=== PATIENT | female | born 1945 | race Caucasian/White ===

== ENCOUNTER 2016-08-20 22:22 | Inpatient (IN) | payer MEDICARE ==
[~2016-08-20] VITALS: Ht 165.1 cm; Wt 63.2 kg
[~2016-08-20 22:22] MED LIST: ANAS1TAB7 PO; CALC-235 PO; CHOL200047 PO; LEVE500T3 PO; ZOLP5TAB6 PO
[2016-08-20 22:25] VITALS: BP 128/63; PULSE 50; O2SAT 100
[2016-08-20 22:55] LABS: BASOPHILS % (AUTO) 0.4 % (0-3); EOSINOPHILS % (AUTO) 1.9 % (0-5); MONOCYTES % (AUTO) 8.1 % (4-12); Mean Corpuscular Hemoglobin 31.5 pg (27.0-35.0); Mean Corpuscular Volume 93.2 fL (81-100); NEUTROPHILS % (AUTO) 69.3 % (40-74); Platelet Count 293 bil/L (150-400)
[2016-08-20 23:27] LABS: APPEARANCE,URINE HAZY (CLEAR,HAZY); COLOR,URINE STRAW (YELLOW); OCCULT BLOOD,URINE NEGATIVE (NEGATIVE); UROBILINOGEN,URINE NORMAL (NORMAL)
[2016-08-21] VITALS (10 sets, daily range): BP systolic 105–133; BP diastolic 55–79; PULSE 65–86; RESP 16–20; O2SAT 95–100
[2016-08-21] MEDS ORDERED: HYDROmorphone 0.5 mg/0.5 mL iSecure Syringe IVPUSH PRN (00:55)
[2016-08-21] MEDS ORDERED: Ondansetron 2 mg/mL 2 mL Inj IVPUSH PRN ×2 (00:55→01:05)
--- NOTE | 2016-08-21 00:59 | ED.REPORT ---
HPI-Abd Pain F 40 and Over Date of Service Aug 21, 2016 ED Provider: Dane Magaña DO Nursing Notes Stated Complaint: ABDOMINAL PAIN, POSSIBLE PANCREATITIS Chief Complaint: Female Abdominal Pain Allergies: Coded Allergies: TAPE (Verified Allergy, Unknown, 04/22/16) Scheduled Anastrozole (Anastrozole) 1 Mg Tablet 1 MG PO DAILY Calcium Carbonate/Vitamin D3 (Calcium 250+D Tablet) 1 Each Tablet 1 EACH PO DAILY Cholecalciferol (Vitamin D3) (Vitamin D3) 2,000 Unit Capsule 2,000 UNIT PO BID Levetiracetam (Levetiracetam) 500 Mg Tablet 500 MG PO BID Scheduled PRN Zolpidem (Zolpidem) 5 Mg Tablet 2.5 MG PO HS PRN PRN For Insomnia General Time Seen by MD: 00:54 Chief Complaint Abdominal pain Midline epigastric pain radiating to her back. Hx Obtained From: Patient Sudden in Onset?: No Onset Occurred: 5 - 8 hours ago Context of Onset: Other (prior history of pancreatitis) Symptom Duration: Since onset Progression since Onset: Gradually worsening Location: : Epigastric Quality: Burning Radiation: : Back Severity: Current: Moderate Severity: Maximum: Moderate Associated with: Reports: Nausea Pertinent Negative: Pt denies other symptoms Recent Healthcare: Recent hospitalization Similar Sx Previous: Yes Risk Factors )( AAA Risk Stratification No 1st degree relative, No Carmelo-Danlos syndrome, No Hypertension, No Marfan's syndrome, No Prior AAA, No Smoking Risk factors reviewed Ectopic Risk Stratification Risk factors reviewed CAD Risk Stratification Risk factors reviewed TAD Risk Stratification Risk factors reviewed Past Medical History Past Medical History left-sided breast cancer Past Surgical History left mastectomy hip replacement Family History Noncontributory Smoking History Never Smoker Social History Alcohol Use: Denies alcohol use Drug Use: Denies drug use Other Social History: Good social support, , Local resident Ambulatory Status Independent Review of Systems Basic Review of Systems Eyes: Vision NL, No discharge ENT: Hearing NL, No nasal congestion, No pharyngeal pain Hematologic: No bleeding, No bruising Endocrine: No cold intolerance, No heat intolerance, No weight gain, No weight loss Skin: No bruising, No rash, No itch Allergy / Immune: No allergy Neurologic: NL mental status, No weakness, No numbness Psychiatric: Normal thought content Physical Exam Vital Signs Vital Signs (First) Date Time Temp Pulse Resp B/P Pulse Ox O2 Delivery O2 Flow Rate FiO2 08/20/16 22:25 36 50 128/63 100 Room Air Head / Eyes: Atraumatic, Normocephalic, PERRL ENT: Mucous membranes moist, Conjunctiva normal Neck: Supple, Non-tender, Full range of motion Lymphatic: No lymphadenopathy Extremities: Vascular intact, Neuro intact, No swelling, No tenderness Skin: Warm, Dry, No cyanosis Neurologic: Alert, Oriented, Nonfocal Psychiatric: Mood/affect normal, Behavior normal Tenderness/Guarding/Rebound: Positive: Tender diffuse Organomegaly / Mass / Hernia: Negative: Mass present Bowel Sounds / Distention: Positive: Bowel sounds hyperactive Interpretation & Diagnostics Lab Results Interpretation Result Diagram: 08/20/168 08/20/16 2248 Test 08/20/16 22:48 08/20/16 23:04 White Blood Count 12.2th/mm3 (3.8-10.1) Red Blood Count 4.13mil/mm3 (3.90-5.20) Hemoglobin 13.0g/dL (12.0-15.6) Hematocrit 38.5% (35.0-46.0) Mean Corpuscular Volume 93.2fL (81-100) Mean Corpuscular Hemoglobin 31.5pg (27.0-35.0) Mean Corpuscular Hemoglobin Concent 33.8% (32.0-37.0) Red Cell Distribution Width 13.1% (12.3-15.4) Platelet Count 293bil/L (150-400) Neutrophils (%) (Auto) 69.3% (40-74) Lymphocytes (%) (Auto) 20.1% (14-46) Monocytes (%) (Auto) 8.1% (4-12) Eosinophils (%) (Auto) 1.9% (0-5) Basophils (%) (Auto) 0.4% (0-3) Sodium Level 141mEq/L (134-144) Potassium Level 3.8mEq/L (3.5-5.2) Chloride Level 102mEq/L (97-108) Carbon Dioxide Level 29mmol/L (18-29) Blood Urea Nitrogen 19mg/dL (8-27) Creatinine 0.79mg/dL (0.57-1.00) Estimat Glomerular Filtration Rate 103mL/min (>59) Glucose Level 153mg/dL (60-99) Lactic Acid Level 1.0mmol/L (0.4-2.0) Calcium Level 9.3mg/dL (8.5-10.1) Magnesium Level 2.0mg/dL (1.6-2.6) Total Bilirubin 0.2mg/dL (0.0-1.2) Aspartate Amino Transf (AST/SGOT) 23U/L (0-50) Alanine Aminotransferase (ALT/SGPT) 17U/L (0-32) Alkaline Phosphatase 46U/L (25-165) Total Protein 6.6g/dL (6.4-8.4) Albumin 4.1g/dL (3.4-5.0) Triglycerides Level 81mg/dL (0-149) Cholesterol Level 181mg/dL (100-199) LDL Cholesterol, Calculated 107.800mg/dL (0-99) VLDL Cholesterol 16.200mg/dL HDL Cholesterol 57mg/dL (>39) Cholesterol/HDL Ratio 3.18 (0.0-4.4) Lipase 6950U/L (13-60) Urine Color Straw (YELLOW) Urine Appearance Hazy (CLEAR,HAZY) Urine pH 7.0 (5.0-8.0) Urine Specific [place] 1.020 (1.003-1.035) Urine Protein Negativemg/dL (NEG,TRACE) Urine Glucose (UA) Negativemg/dL (NEGATIVE) Urine Ketones Negativemg/dL (NEGATIVE) Urine Occult Blood Negative (NEGATIVE) Urine Nitrite Negative (NEGATIVE) Urine Bilirubin Negative (NEGATIVE) Urine Urobilinogen Normalmg/dL (NORMAL) Urine Leukocyte Esterase Trace (NEGATIVE) Urine RBC 0-2/hpf (0-2) Urine WBC 0-5/hpf (0-5) Urine Epithelial Cells Occasional/hpf (NONE-MOD) Urine Crystals Amorphous phosphates Urine Bacteria None/hpf (NONE-FEW) Urine Hyaline Casts None/lpf (NONE) Urine Granular Casts None seen (NONE SEEN) Urine Waxy Casts None seen (NONE SEEN) Urine Red Blood Cell Casts None seen (NONE SEEN) Urine White Blood Cell Casts None seen (NONE SEEN) Urine Mucus None seen (None Seen) Urine Trichomonas None seen (NONE SEEN) Urine Yeast None (NONE SEEN) Urine Culture Reflexed Indicated Re-Eval/Medical Decision Med Decision/Clinical Course 70-year-old female history of pancreatitis presents with similar symptoms to her prior bout. She has right historian right exam for pancreatitis. She has biochemical evidence and CT evidence of pancreatitis. She has been treated with IV fluids and she will be admitted to the hospital for further care and disposition. Discharge & Departure Shift Change Sign-Out Response to Therapy: Improved Primary Impression: Acute pancreatitis Pancreatitis type: unspecified pancreatitis type Qualified Code: K85.9 - Acute pancreatitis, unspecified Referrals: Pérez Avelar MD (PCP) Dane Magaña DO Aug 21, 2016 00:59
[2016-08-21] MEDS ORDERED: 0.9% Sodium Chloride 1,000 ML IV ONE (01:05)
[2016-08-21] MEDS ORDERED: Polyethylene Glycol (PEG) 17 Gm Powder PO PRN (01:05)
[2016-08-21] MEDS ORDERED: Alum-Mag Hydrox-Simeth 30 mL Suspension PO PRN (01:05)
[2016-08-21] MEDS: HYDROmorphone 1 mg/mL Inj IVPUSH PRN ×3 (01:41→18:00)
[2016-08-21] MEDS: Lactated Ringer's 1,000 ML IV SCH ×3 (03:24→19:43)
--- NOTE | 2016-08-21 04:09 | PCM.HPMED ---
Subjective Date of Service Aug 21, 2016 Primary Provider: Admitting Physician: Primary Care Physician: Pérez Avelar MD Attending Physician: Admit Status: From the Emergency Department, Full Admit, Remote Telemetry Chief Complaint: Acute abdominal pain History of Present Illness: Yue Crowe is a 70 wo woman with Breast Cancer, Melanoma and Epilepsy disorder who presents to [facility] Emergency department with complaints of abdominal pain Patient reported the pain started around 8:30 PM after eating dinner. Pain located in the lower mid abdomen, crampy, 8/10 intensity with no radiation to her back. Associated symptoms includes nausea and vomiting, chills and feeling sweaty. Patient reported similar to her episode of pancreatitis last March. Etiology of her pancreatitis was never determined. This will be her third episode of pancreatitis. Patient denies any heavy alcohol consumption and she still have her gallbladder. Case discussed with Dr Magaña. Lipase 6991. Fluids given. CT Abdomen was requested Review of Systems: Pertinent positives as noted in HPI. All other systems were reviewed and are negative Allergies Coded Allergies: TAPE (Verified Allergy, Unknown, 04/22/16) Home Medications From [facility], not yet confirmed Yue Crowe Yessenia. [id number] 1945 07/25/2016 02:30 PM Page: 07/31 anastrozole 1 mg tablet take 1 tablet by oral route every day CALCIUM take 250 mg daily. 08/21/2015 levetiracetam 500 mg tablet take 1 tablet by oral route 2 times every day 10/19/2015 Vitamin D3 1,000 unit tablet take 2 by Oral route every day 10/19/2015 zolpidem 5 mg tablet take 1 tablet by oral route every day at bedtime as needed. PMH Right breast CA stage IIIA, ER+ HER-2 neg, s/p mastectomy. Currently on letrozole Recurrent Pancreatitis Epilepsy Melanoma Non Hodgkin Lymphoma . Surgical History Left hip surgery Left breast mastectomy with reconstruction Family History no pancreatitis, GI malignancy Social History Hx Alcohol Use: Yes (occasionally) Hx Substance Use: No Hx Tobacco Use: Yes Smoking Status: Former Smoker Living Arrangement: with Family Assisted Living Exam Vital Signs Vital Sign - Last Date Time Temp Pulse Resp B/P Pulse Ox O2 Delivery O2 Flow Rate FiO2 08/20/16 22:25 36 50 128/63 100 Room Air Exam General: Alert, Oriented X3, Cooperative, No acute Distress Eyes: PERRLA, Scleral Anicteric Mouth: Mouth Normal, Mucous Membranes Moist/[place] Neck: Supple, no Thyromegaly, trachea central. Chest & Lungs: Clear to auscultation & percussion, No adventitious breath sounds, no crackles, no wheeze Cardiovascular: Normal S1, Normal S2, No Murmurs/Rubs/Gallops, Regular Rate/ Rhythm, (No JVD, no peripheral edema) Pulses: Radial (present and equal), Dorsalis Pedi (present and equal) Abdomen: Soft, umbilical tenderness, no rebound, Non-distended, Normoactive bowel tones. Musculoskeletal: Unremarkable. Normal range of motion, no swollen or erythematous joints Extremities: No edema, no cyanosis, no clubbing. Skin: No rashes. Warm and dry, no erythematous areas Neurological: Grossly neurologically intact, Normal Speech, Sensation Intact Lymphatic: Lymph nodes Cervical and Axillary not palpable. Lab and Diagnostics Labs Laboratory Tests Test 08/20/16 22:48 08/20/16 23:04 White Blood Count 12.2th/mm3 (3.8-10.1) Red Blood Count 4.13mil/mm3 (3.90-5.20) Hemoglobin 13.0g/dL (12.0-15.6) Hematocrit 38.5% (35.0-46.0) Mean Corpuscular Volume 93.2fL (81-100) Mean Corpuscular Hemoglobin 31.5pg (27.0-35.0) Mean Corpuscular Hemoglobin Concent 33.8% (32.0-37.0) Red Cell Distribution Width 13.1% (12.3-15.4) Platelet Count 293bil/L (150-400) Neutrophils (%) (Auto) 69.3% (40-74) Lymphocytes (%) (Auto) 20.1% (14-46) Monocytes (%) (Auto) 8.1% (4-12) Eosinophils (%) (Auto) 1.9% (0-5) Basophils (%) (Auto) 0.4% (0-3) Sodium Level 141mEq/L (134-144) Potassium Level 3.8mEq/L (3.5-5.2) Chloride Level 102mEq/L (97-108) Carbon Dioxide Level 29mmol/L (18-29) Blood Urea Nitrogen 19mg/dL (8-27) Creatinine 0.79mg/dL (0.57-1.00) Estimat Glomerular Filtration Rate 103mL/min (>59) Glucose Level 153mg/dL (60-99) Lactic Acid Level 1.0mmol/L (0.4-2.0) Calcium Level 9.3mg/dL (8.5-10.1) Magnesium Level 2.0mg/dL (1.6-2.6) Total Bilirubin 0.2mg/dL (0.0-1.2) Aspartate Amino Transf (AST/SGOT) 23U/L (0-50) Alanine Aminotransferase (ALT/SGPT) 17U/L (0-32) Alkaline Phosphatase 46U/L (25-165) Total Protein 6.6g/dL (6.4-8.4) Albumin 4.1g/dL (3.4-5.0) Lipase 6950U/L (13-60) Urine Color Straw (YELLOW) Urine Appearance Hazy (CLEAR,HAZY) Urine pH 7.0 (5.0-8.0) Urine Specific [place] 1.020 (1.003-1.035) Urine Protein Negativemg/dL (NEG,TRACE) Urine Glucose (UA) Negativemg/dL (NEGATIVE) Urine Ketones Negativemg/dL (NEGATIVE) Urine Occult Blood Negative (NEGATIVE) Urine Nitrite Negative (NEGATIVE) Urine Bilirubin Negative (NEGATIVE) Urine Urobilinogen Normalmg/dL (NORMAL) Urine Leukocyte Esterase Trace (NEGATIVE) Urine RBC 0-2/hpf (0-2) Urine WBC 0-5/hpf (0-5) Urine Epithelial Cells Occasional/hpf (NONE-MOD) Urine Crystals Amorphous phosphates Urine Bacteria None/hpf (NONE-FEW) Urine Hyaline Casts None/lpf (NONE) Urine Granular Casts None seen (NONE SEEN) Urine Waxy Casts None seen (NONE SEEN) Urine Red Blood Cell Casts None seen (NONE SEEN) Urine White Blood Cell Casts None seen (NONE SEEN) Urine Mucus None seen (None Seen) Urine Trichomonas None seen (NONE SEEN) Urine Yeast None (NONE SEEN) Urine Culture Reflexed Indicated Microbiology 08/20/16 Urine Culture, Received Pending Result Diagram: 08/20/16224708/20/162247 Assessment & Plan Yue Crowe is a 70 wo woman with Breast Cancer, Melanoma and Epilepsy disorder who presents to [facility] Emergency department with complaints of abdominal pain. Consistent with Acute Pancreatitis. 1. Acute Epigastric pain secondary to Acute pancreatitis. Present on admission Etiology unclear but Hypertriglyceridemia, Viral, Gallstone are all considered. no fluid collection/necrosis/stones. not severe pancreatitis given benign labs, no SIRS. Labs not suggestive of biliary obstruction, biliary sludge. BISAP score 1 (no increased risk of complications), - IV fluids resuscitations with LR @ 125 cc/hr - CT Abdomen pending - nothing by mouth 2. Breast CA s/p mastectomy, chemo/Radiation on letrozole - follow up with - continuing Anastrozole (not felt to cause pancreatitis) 3. Seizure disorder, chronic stable - continuing with Keppra 500 bid - Acetaminophen as needed for mild pain/fever/headache - Bowel regimen as needed - Antiemetic as needed Patient admitted under inpatient status with expected length of stay > 2 midnights for severity of present symptoms, complexities of treatment plan and risk for adverse event . Resuscitation Status: CPR: Attempt Resuscitation Mejia Griffin MD Aug 21, 2016 01:10
--- NOTE | 2016-08-21 04:33 | NUR ---
Admit Patient arrived from ED at 0320. Vitals stable, A&Ox3, by bedside. Patient's pain 08/05. Patient up independently to bathroom. Room air. Tele sinus 70.
--- NOTE | 2016-08-21 09:03 | DRSVH ---
PROCEDURE: CT ABDOMEN AND PELVIS WITH CONTRAST ([id number]) INDICATIONS: acute pancreatitis TECHNIQUE: After the administration of intravenous contrast, 5 mm thick sections acquired from the diaphragm to the symphysis. 5 mm coronal and sagittal reformats were acquired. For radiation dose reduction, the following was used: automated exposure control, adjustment of mA and/or kV according to patient sri harris. COMPARISON: [facility], CT, CT ABD PELVIS W CON, 04/22/2016, 8:14. FINDINGS: Image quality: Excellent. ABDOMEN: Lung bases: There is mild dependent basilar atelectasis. No pleural effusion. Patient is status post right mastectomy. Solid organs: Liver and spleen are normal in size and enhancement. There is likely trace focal fat a t the falciform ligament. Gallbladder is unremarkable. Biliary system is non dilated. No adrenal no dules. Kidneys demonstrate normal size and enhancement, without hydronephrosis. The pancreas demonstrates overall homogeneous enhancement. There is diffuse. Atretic fat stranding. N o discrete peripancreatic fluid collections. Peritoneum and bowel: Bowel loops demonstrate normal wall thickness and caliber. The appendix is thi n walled and gas filled. No free fluid or air. Nodes and vessels: No retroperitoneal or mesenteric adenopathy by size criteria. Aorta and inferior vena cava are normal in size. Miscellaneous: No ventral hernias. PELVIS: Genitourinary: Bladder wall thickness is normal. The right ovary is unremarkable. Multiple calcifie d fibroids are present within the uterus. The left ovary has a 1.7 cm cystic lesion within. Miscellaneous: No inguinal hernias or adenopathy. Bones: No suspicious bony lesions. No vertebral body compression fractures. Right hip arthroplasty is intact. IMPRESSION: 1. Acute pancreatitis, likely the edematous subtype. No findings to suggest pancreatic necrosis or pa ncreatic pseudocyst. 2. Normal appendix. Note: The preliminary [facility] interpretation and the final report are concordant. 3. Left ovarian cystic lesion greater than 1 cm diameter. Nonemergent pelvic ultrasound is recommended to further characterize this finding. Dictated by: Mikayla Ricci M.D. on 08/21/2016 at 8:52 Approved by: Mikayla Ricci M.D. on 08/21/2016 at 9:01
--- NOTE | 2016-08-21 09:34 | DRSVH ---
PROCEDURE: US ABDOMEN ([id number]) INDICATIONS: Pancreatitis/Possibly Gallstone induced TECHNIQUE: Real-time scanning was performed of the abdominal and retroperitoneal organs, with image documentatio n. COMPARISON: [facility], CT, CT ABD PELVIS W CON, 08/21/2016, 2:43. FINDINGS: Liver: Liver is normal in size and homogeneous in echotexture. Gallbladder: The gallbladder appears normal Biliary ducts: Intrahepatic bile ducts are non-dilated. Extrahepatic bile duct caliber measures 2.3 mm. Normal is 6-7 mm or less in diameter, or 10 mm or less post-cholecystectomy. Pancreas: Visualized portions of the pancreas are sonographically normal although the CT scan also o btained same day does show definite evidence of pancreatitis.. Spleen: Spleen is normal in size and homogeneous in echotexture. Kidneys: Kidneys are normal in size and echotexture. Right kidney measures 10.8 cm long; left kidne y measures 10.4 cm long. No hydronephrosis or nephrolithiasis. No solid masses. Aorta: Visualized aorta is normal in caliber at less than 3 cm. Iliacs: Proximal common iliac arteries are normal in caliber at less than 2.5 cm. IVC: Intrahepatic inferior vena cava is patent. Miscellaneous: No free abdominal fluid. IMPRESSION: No gallstones or biliary distention found. Pancreatic duct is normal in caliber in the p ancreatic parenchyma visualized appears normal sonographically. Please note that the CT scanning als o obtained same day shows definite CT evidence of acute pancreatitis, moderate in severity. Generall y sonographic detection of pancreatitis is possible only in the setting of very severe pancreatitis r ather than mild to moderate pancreatitis. Dictated by: Avila Packer M.D. on 08/21/2016 at 9:28 Approved by: Avila Packer M.D. on 08/21/2016 at 9:32
[2016-08-21] MEDS ORDERED: levETIRAcetam 500 mg Tablet PO SCH (12:10)
--- NOTE | 2016-08-21 13:28 | NUR ---
Social Work Continued Discharge Planning: SW met with patient at bedside to discuss discharge plan. Patient is a 70 year old female admitted on 08/21/16 for acute pancreatitis. Patient payer as [email or web address]. Patient PCP as Alie Cheney last seen in September. Patient has no group home nor [facility] benefits. Patient resides in [facility] with . Patient states pharmacy of choice as [facility]. Patient has HHC history in past. Patient has a walker and cane at home. Patient has no previous SNF history. Patient states being independent with needs and has no identified discharge needs at this time. SW to follow. PLAN: Home with via POV, pending clinical course. Walker and cane at home. SW to follow to ensure home safety at discharge. Cara SMITH Addendum: 08/21/16 at 1332 by MARISELA HUBER SS Amended: Links added.
--- NOTE | 2016-08-21 16:25 | NUR ---
ACTIVITY Dilaudid 0.5 mg IVP has been effective for pain control. She is NPO. She complained of nausea and had several emesis. Zofran IVP administered, which was effective for her nausea. Denies SOB. Ambulating independently in the room. Patient is on tele. Per telephone engineer patient is on sinus rhythm; HR-60's. Voiding without any problems.
[2016-08-21] MEDS: levETIRAcetam 500 mg/100 mL NS IV SCH ×2 (17:42)
--- NOTE | 2016-08-21 21:14 | NUR ---
Rest Pt states that she has been feeling a little weak today and would like to rest. Her gait is still steady. Provided low stimulation to the patient per her request.
--- NOTE | 2016-08-21 22:41 | PCM.PNMED ---
Subjective Date of Service Aug 21, 2016 Subjective Patient continues to complain of abdominal pain. She does not think that she can take anything by mouth at this time. She is asking for ice chips. She had nausea and vomiting 2 this morning. She has no other new complaints. Exam Vital Signs Vital Sign - Last Date Time Temp Pulse Resp B/P Pulse Ox O2 Delivery O2 Flow Rate FiO2 08/21/16 19:43 36.8 78 20 122/69 98 Room Air Intake and Output 08/20/16 08/20/16 08/21/16 Cumulative From/Thru 15:00 23:00 07:00 08/20/16 22:25 - 08/21/16 06:50 Intake Total 1436 ml 1436 ml Balance 1436 ml 1436 ml Intake Oral 0 ml 0 ml IV Total 1436 ml 1436 ml # Voids 1 1 # Bowel Movements 0 0 Exam General: Patient is in no apparent distress. HEENT: Head is atraumatic normocephalic. Eyes: Pupils are equally round and reactive to light and accommodation. Extraocular muscles are intact. Sclera are white anicteric. Subconjunctival mucosa is pink. Ears and nose are unremarkable. Oropharynx: There is no mucosal lesions, there is no thrush, there is no pharyngitis. Neck: Is supple, there are no nodes, or masses, or tenderness. Chest: Is clear to auscultation and percussion. There are no rales, rhonchi, wheezes or rubs. Heart: Rate, rhythm is regular. There is no murmur, rub or gallop. Abdomen: Good bowel sounds are present. Abdomen is soft, with epigastric tenderness. There is no rebound tenderness, no guarding, no organomegaly or masses were appreciated. Extremities: Are symmetrical and well perfused. There is no edema, there is no cellulitis, no rash. Neurologic: There are no focal neurological deficits. Cranial nerves II through XII are intact. There are no sensory or motor deficits. Psychiatric: Patients mood is calm and shows no sign of agitation. Genital: Deferred Rectal: Deferred Lab and Diagnostics Result Diagram: 08/20/16224708/20/162247 Microbiology Name: PHILIP OTERO Age/Sex: 70/F Attend Dr: Mejia Griffin MD Acct: [id number] Unit: [id number] Status: ADM IN Location[place] [facility] [place] 1016-1 Re08/21/16 Disch: Specimen: [id number] Collected: 08/20/16 Status: RES Req#: [id number] Received: 08/20/16 Source: URINE CC Sp Desc : SAMMI De Leon Dr: LIU SMITH MD Ordered: URINE CULT Procedure Result Verified Site Microbiology BRUNO CULT URINE Preliminary 08/21/16 No growth to date X-Rays, CTs and MRIs PROCEDURE: CT ABDOMEN AND PELVIS WITH CONTRAST ([id number]) INDICATIONS: acute pancreatitis TECHNIQUE: After the administration of intravenous contrast, 5 mm thick sections acquired from the diaphragm to the symphysis. 5 mm coronal and sagittal reformats were acquired. For radiation dose reduction, the following was used: automated exposure control, adjustment of mA and/or kV according to patient size. COMPARISON: [facility], CT, CT ABD PELVIS W CON, 04/22/2016, 8:14. FINDINGS: Image quality: Excellent. ABDOMEN: Lung bases: There is mild dependent basilar atelectasis. No pleural effusion. Patient is status post right mastectomy. Solid organs: Liver and spleen are normal in size and enhancement. There is likely trace focal fat at the falciform ligament. Gallbladder is unremarkable. Biliary system is non dilated. No adrenal nodules. Kidneys demonstrate normal size and enhancement, without hydronephrosis. The pancreas demonstrates overall homogeneous enhancement. There is diffuse. Atretic fat stranding. No discrete peripancreatic fluid collections. Peritoneum and bowel: Bowel loops demonstrate normal wall thickness and caliber. The appendix is thin walled and gas filled. No free fluid or air. Nodes and vessels: No retroperitoneal or mesenteric adenopathy by size criteria. Aorta and inferior vena cava are normal in size. Miscellaneous: No ventral hernias. PELVIS: Genitourinary: Bladder wall thickness is normal. The right ovary is unremarkable. Multiple calcified fibroids are present within the uterus. The left ovary has a 1.7 cm cystic lesion within. Miscellaneous: No inguinal hernias or adenopathy. Bones: No suspicious bony lesions. No vertebral body compression fractures. Right hip arthroplasty is intact. IMPRESSION: 1. Acute pancreatitis, likely the edematous subtype. No findings to suggest pancreatic necrosis or pancreatic pseudocyst. 2. Normal appendix. Note: The preliminary [facility] interpretation and the final report are concordant. 3. Left ovarian cystic lesion greater than 1 cm diameter. Nonemergent pelvic ultrasound is recommended to further characterize this finding. Dictated by: Mikayla Ricci M.D. on 08/21/2016 at 8:52 Approved by: Mikayla Ricci M.D. on 08/21/2016 at 9:01 PROCEDURE: US ABDOMEN ([id number]) INDICATIONS: Pancreatitis/Possibly Gallstone induced TECHNIQUE: Real-time scanning was performed of the abdominal and retroperitoneal organs, with image documentation. COMPARISON: [facility], CT, CT ABD PELVIS W CON, 08/21/2016, 2:43. FINDINGS: Liver: Liver is normal in size and homogeneous in echotexture. Gallbladder: The gallbladder appears normal Biliary ducts: Intrahepatic bile ducts are non-dilated. Extrahepatic bile duct caliber measures 2.3 mm. Normal is 6-7 mm or less in diameter, or 10 mm or less post-cholecystectomy. Pancreas: Visualized portions of the pancreas are sonographically normal although the CT scan also obtained same day does show definite evidence of pancreatitis.. Spleen: Spleen is normal in size and homogeneous in echotexture. Kidneys: Kidneys are normal in size and echotexture. Right kidney measures 10.8 cm long; left kidney measures 10.4 cm long. No hydronephrosis or nephrolithiasis. No solid masses. Aorta: Visualized aorta is normal in caliber at less than 3 cm. Iliacs: Proximal common iliac arteries are normal in caliber at less than 2.5 cm. IVC: Intrahepatic inferior vena cava is patent. Miscellaneous: No free abdominal fluid. IMPRESSION: No gallstones or biliary distention found. Pancreatic duct is normal in caliber in the pancreatic parenchyma visualized appears normal sonographically. Please note that the CT scanning also obtained same day shows definite CT evidence of acute pancreatitis, moderate in severity. Generally sonographic detection of pancreatitis is possible only in the setting of very severe pancreatitis rather than mild to moderate pancreatitis. Dictated by: Avila Packer M.D. on 08/21/2016 at 9:28 Approved by: Avila Packer M.D. on 08/21/2016 at 9:32 Cardiac Echo Impressions Echocardiogram Report Name: PHILIP OTERO Study Date: 06/27/2015 Height: 64 in Hospital Exam Location: [facility] Weight: 140 lb Gender: Female BSA: 1.7 m2 : 1945 Age: 69 yrs BP: 124/64 mmHg Reason For Study: Dyspnea Ordering Physician: Performed By: YURY Araiaz Referring Physician: Marianne Avelar Interpretation Summary Normal left ventricle size with ejection fraction 60-65%. Mildly dilated left atrium. Mild mitral regurgitation. The right ventricular systolic pressure is estimated at 20 mmHg assuming a right atrial pressure of 3 mm Hg. Comparison is made with the echocardiogram of 08/04/13, there has been no significant change. Assessment & Plan Philip Otero is a 70 wo woman with Breast Cancer, Melanoma and Epilepsy disorder who presents to [facility] Emergency department with complaints of abdominal pain. Consistent with Acute Pancreatitis. 1. Acute Epigastric pain secondary to Acute pancreatitis. Present on admission Etiology unclear but Hypertriglyceridemia, Viral, Gallstone are all considered. no fluid collection/necrosis/stones. not severe pancreatitis given benign labs, no SIRS. Labs not suggestive of biliary obstruction, biliary sludge. BISAP score 1 (no increased risk of complications), - We will continue IV fluid resuscitation with LR @ 80 cc/hr(reduced from 125 mL an hour) - CT of the Abdomen confirms the diagnosis of pancreatitis. There does not appear to be any necrosis or pseudocyst formation. - Continue the patient on a nothing by mouth except ice chips diet. - We will consult dietary in a.m. as patient does not appear clear liquid diet which she will be advanced to next, possibly tomorrow. 2. Breast CA s/p mastectomy, chemo/Radiation on letrozole - follow up with - continuing Anastrozole (not felt to cause pancreatitis) 3. Seizure disorder, chronic stable - We will continue with Keppra 500 intravenously bid, as patient is unable to take by mouth - Acetaminophen as needed for mild pain/fever/headache - Bowel regimen as needed - Antiemetic as needed Patient admitted under inpatient status with expected length of stay > 2 midnights for severity of present symptoms, complexities of treatment plan and risk for adverse event . Pain Evaluation: Adequate Pain Control GI Prophylaxis: Proton Pump Inhibitor VTE Prophylaxis: Sub-Q Enoxaparin VTE Mechanical Devices: Intermittant Pneumatic CD Resuscitation Status: CPR: Attempt Resuscitation Jalil Cardozo MD Aug 21, 2016 22:40
[2016-08-22 00:24] VITALS: BP 122/69; PULSE 78; RESP 18; O2SAT 95
--- NOTE | 2016-08-22 01:39 | NUR ---
Activity Patient A&OX3, and pleasant this evening. Patient has denied any N/V for me at this time. States abd pain 08/05, and has not requested any pain medication at this time. Patient is able to ambulate independently with SBA. IV is currently infusing LR @ 125. Patient has been able to sleep for the majority of this shift so far. Will continue to monitor, and continue Q1 hour checks.
[2016-08-22] MEDS: Lactated Ringer's 1,000 ML IV SCH ×3 (02:24→15:12)
[2016-08-22 05:10] VITALS: PULSE 56
[2016-08-22] MEDS: levETIRAcetam 500 mg/100 mL NS IV SCH ×4 (05:26→17:47)
[2016-08-22 06:05] VITALS: BP 123/65; PULSE 80; RESP 20; O2SAT 94
[2016-08-22 06:12] LABS: BASOPHILS % (AUTO) 0.2 % (0-3); EOSINOPHILS % (AUTO) 0.3 % (0-5); MONOCYTES % (AUTO) 8.5 % (4-12); Mean Corpuscular Hemoglobin 31.2 pg (27.0-35.0); Mean Corpuscular Volume 93.8 fL (81-100); NEUTROPHILS % (AUTO) 79.6 % (40-74); Platelet Count 244 bil/L (150-400)
[2016-08-22 06:25] LABS: Magnesium 1.9 mg/dL (1.6-2.6); Phosphorus 2.9 mg/dL (2.5-4.9)
[2016-08-22] MEDS: Pantoprazole 4 mg/mL 10 mL Inj IVPUSH SCH (07:45)
[2016-08-22 08:00] VITALS: PULSE 72
[2016-08-22] MEDS: Calcium Carbonate (Oyster Shell) 500 mg Tablet PO SCH (08:30)
[2016-08-22 14:35] VITALS: BP 125/60; PULSE 70; RESP 18; O2SAT 97
--- NOTE | 2016-08-22 18:06 | NUR ---
GI/ACTIVITY Patient rated her pain as 1/10. Diet was advanced to clear but she stated that her stomach feels "queasy". She does not want any nausea medication at this time. No emesis noted. + Flatus. No BM noted. Ambulated multiple times in the hallway with her . Voiding without any problems.
[2016-08-22 20:43] VITALS: BP 139/74; PULSE 74; RESP 18; O2SAT 96
--- NOTE | 2016-08-22 23:18 | PCM.PNMED ---
Subjective Date of Service Aug 22, 2016 Subjective Patient is feeling a little bit better today, however she still is only able to drink approximately 1/10 of a container of ensure "breeze" due to abdominal pain with any intake. Exam Vital Signs Vital Sign - Last Date Time Temp Pulse Resp B/P Pulse Ox O2 Delivery O2 Flow Rate FiO2 08/22/16 20:43 36.7 74 18 139/74 96 Room Air Intake and Output 08/21/16 08/21/16 08/22/16 Cumulative From/Thru 15:00 23:00 07:00 08/20/16 22:25 - 08/22/16 06:20 Intake Total 1487 ml 1178 ml 4101 ml Output Total 730 ml 1300 ml 2030 ml Balance 757 ml -122 ml 2071 ml Intake Oral 0 ml 0 ml IV Total 1487 ml 1178 ml 4101 ml Output Urine Total 650 ml 1300 ml 1950 ml Emesis 80 ml 80 ml # Voids 1 # Bowel Movements 0 0 Exam General: Patient is in no apparent distress. HEENT: Head is atraumatic normocephalic. Eyes: Pupils are equally round and reactive to light and accommodation. Extraocular muscles are intact. Sclera are white anicteric. Subconjunctival mucosa is pink. Ears and nose are unremarkable. Oropharynx: There is no mucosal lesions, there is no thrush, there is no pharyngitis. Neck: Is supple, there are no nodes, or masses, or tenderness. Chest: Is clear to auscultation and percussion. There are no rales, rhonchi, wheezes or rubs. Heart: Rate, rhythm is regular. There is no murmur, rub or gallop. Abdomen: Good bowel sounds are present. Abdomen is soft, with improved epigastric tenderness. There is no rebound tenderness, no guarding, no organomegaly or masses were appreciated. Extremities: Are symmetrical and well perfused. There is no edema, there is no cellulitis, no rash. Neurologic: There are no focal neurological deficits. Cranial nerves II through XII are intact. There are no sensory or motor deficits. Psychiatric: Patients mood is calm and shows no sign of agitation. Genital: Deferred Rectal: Deferred Lab and Diagnostics Result Diagram: 08/22/1620 08/22/1620 Microbiology Name: PHILIP OTERO Age/Sex: 70/F Attend Dr: Mejia Griffin MD Acct: [id number] Unit: [id number] Status: ADM IN [place] [facility] [place]08/21/16 Disch: Specimen: [id number] Collected: 08/20/16 Status: RES Req#: [id number] Received: 08/20/16 Source: URINE EUGENIO Sp Desc : SAMMI De Leon Dr: LIU SMITH MD Ordered: URINE CULT Procedure Result Verified Site Microbiology BRUNO CULT URINE Preliminary 08/21/16 No growth to date X-Rays, CTs and MRIs PROCEDURE: CT ABDOMEN AND PELVIS WITH CONTRAST ([id number]) INDICATIONS: acute pancreatitis TECHNIQUE: After the administration of intravenous contrast, 5 mm thick sections acquired from the diaphragm to the symphysis. 5 mm coronal and sagittal reformats were acquired. For radiation dose reduction, the following was used: automated exposure control, adjustment of mA and/or kV according to patient size. COMPARISON: [facility], CT, CT ABD PELVIS W CON, 04/22/2016, 8:14. FINDINGS: Image quality: Excellent. ABDOMEN: Lung bases: There is mild dependent basilar atelectasis. No pleural effusion. Patient is status post right mastectomy. Solid organs: Liver and spleen are normal in size and enhancement. There is likely trace focal fat at the falciform ligament. Gallbladder is unremarkable. Biliary system is non dilated. No adrenal nodules. Kidneys demonstrate normal size and enhancement, without hydronephrosis. The pancreas demonstrates overall homogeneous enhancement. There is diffuse. Atretic fat stranding. No discrete peripancreatic fluid collections. Peritoneum and bowel: Bowel loops demonstrate normal wall thickness and caliber. The appendix is thin walled and gas filled. No free fluid or air. Nodes and vessels: No retroperitoneal or mesenteric adenopathy by size criteria. Aorta and inferior vena cava are normal in size. Miscellaneous: No ventral hernias. PELVIS: Genitourinary: Bladder wall thickness is normal. The right ovary is unremarkable. Multiple calcified fibroids are present within the uterus. The left ovary has a 1.7 cm cystic lesion within. Miscellaneous: No inguinal hernias or adenopathy. Bones: No suspicious bony lesions. No vertebral body compression fractures. Right hip arthroplasty is intact. IMPRESSION: 1. Acute pancreatitis, likely the edematous subtype. No findings to suggest pancreatic necrosis or pancreatic pseudocyst. 2. Normal appendix. Note: The [facility] and the final report are concordant. 3. Left ovarian cystic lesion greater than 1 cm diameter. Nonemergent pelvic ultrasound is recommended to further characterize this finding. Dictated by: Mikayla Ricci M.D. on 08/21/2016 at 8:52 Approved by: Mikayla Ricci M.D. on 08/21/2016 at 9:01 PROCEDURE: US ABDOMEN ([id number]) INDICATIONS: Pancreatitis/Possibly Gallstone induced TECHNIQUE: Real-time scanning was performed of the abdominal and retroperitoneal organs, with image documentation. COMPARISON: [facility], CT, CT ABD PELVIS W CON, 08/21/2016, 2:43. FINDINGS: Liver: Liver is normal in size and homogeneous in echotexture. Gallbladder: The gallbladder appears normal Biliary ducts: Intrahepatic bile ducts are non-dilated. Extrahepatic bile duct caliber measures 2.3 mm. Normal is 6-7 mm or less in diameter, or 10 mm or less post-cholecystectomy. Pancreas: Visualized portions of the pancreas are sonographically normal although the CT scan also obtained same day does show definite evidence of pancreatitis.. Spleen: Spleen is normal in size and homogeneous in echotexture. Kidneys: Kidneys are normal in size and echotexture. Right kidney measures 10.8 cm long; left kidney measures 10.4 cm long. No hydronephrosis or nephrolithiasis. No solid masses. Aorta: Visualized aorta is normal in caliber at less than 3 cm. Iliacs: Proximal common iliac arteries are normal in caliber at less than 2.5 cm. IVC: Intrahepatic inferior vena cava is patent. Miscellaneous: No free abdominal fluid. IMPRESSION: No gallstones or biliary distention found. Pancreatic duct is normal in caliber in the pancreatic parenchyma visualized appears normal sonographically. Please note that the CT scanning also obtained same day shows definite CT evidence of acute pancreatitis, moderate in severity. Generally sonographic detection of pancreatitis is possible only in the setting of very severe pancreatitis rather than mild to moderate pancreatitis. Dictated by: Avila Packer M.D. on 08/21/2016 at 9:28 Approved by: Avila Packer M.D. on 08/21/2016 at 9:32 Cardiac Echo Impressions Echocardiogram Report Name: PHILIP OTERO Study Date: 06/27/2015 Height: 64 in Hospital Exam Location: [facility] Weight: 140 lb Gender: Female BSA: 1.7 m2 : 1945 Age: 69 yrs BP: 124/64 mmHg Reason For Study: Dyspnea Ordering Physician: Performed By: YURY Araiza Referring Physician: Marianne Avelar Interpretation Summary Normal left ventricle size with ejection fraction 60-65%. Mildly dilated left atrium. Mild mitral regurgitation. The right ventricular systolic pressure is estimated at 20 mmHg assuming a right atrial pressure of 3 mm Hg. Comparison is made with the echocardiogram of 08/04/13, there has been no significant change. Assessment & Plan Philip Otero is a 70 wo woman with Breast Cancer, Melanoma and Epilepsy disorder who presents to [facility] Emergency department with complaints of abdominal pain. Consistent with Acute Pancreatitis. 1. Acute Epigastric pain secondary to Acute pancreatitis. Present on admission slightly improved today Etiology unclear but Hypertriglyceridemia, Viral, Gallstone are all considered. no fluid collection/necrosis/stones. not severe pancreatitis given benign labs, no SIRS. Labs not suggestive of biliary obstruction, biliary sludge. BISAP score 1 (no increased risk of complications), - We will continue IV fluid resuscitation with LR @ 80 cc/hr(reduced from 125 mL an hour) - CT of the Abdomen confirms the diagnosis of pancreatitis. There does not appear to be any necrosis or pseudocyst formation. - Continue the patient on a nothing by mouth except ice chips diet. - We will continue to advance diet as tolerated. 2. Breast CA s/p mastectomy, chemo/Radiation on letrozole - follow up with - continuing Anastrozole (not felt to cause pancreatitis) 3. Seizure disorder, chronic stable - We will continue with Keppra 500 intravenously bid, as patient is unable to take by mouth - Acetaminophen as needed for mild pain/fever/headache - Bowel regimen as needed - Antiemetic as needed Patient admitted under inpatient status with expected length of stay > 2 midnights for severity of present symptoms, complexities of treatment plan and risk for adverse event . Pain Evaluation: Adequate Pain Control GI Prophylaxis: Proton Pump Inhibitor VTE Prophylaxis: Sub-Q Enoxaparin VTE Mechanical Devices: Intermittant Pneumatic CD Resuscitation Status: CPR: Attempt Resuscitation Jalil Cardozo MD Aug 22, 2016 23:18
[2016-08-23 00:46] VITALS: BP 138/73; PULSE 72; RESP 20; O2SAT 97
--- NOTE | 2016-08-23 03:12 | NUR ---
Refusal care Patient refused finger sticks, stating blood sugars have "..not been bad." Denies CP, SOB, nausea, and pain at this time. Requested Keppra be given at different time, as to not be woken at night. Pharmacy notified and Keppra bags relabeled accordingly.
[2016-08-23] MEDS: Lactated Ringer's 1,000 ML IV SCH ×2 (04:33→16:01)
[2016-08-23 05:37] VITALS: BP 135/74; PULSE 68; RESP 20; O2SAT 94
[2016-08-23 06:11] LABS: BASOPHILS % (AUTO) 0.3 % (0-3); EOSINOPHILS % (AUTO) 1.4 % (0-5); Mean Corpuscular Hemoglobin 31.1 pg (27.0-35.0); Mean Corpuscular Volume 93.8 fL (81-100); NEUTROPHILS % (AUTO) 71.8 % (40-74); Platelet Count 239 bil/L (150-400)
[2016-08-23] MEDS: levETIRAcetam 500 mg/100 mL NS IV SCH ×4 (06:15→18:12)
[2016-08-23] MEDS: Calcium Carbonate (Oyster Shell) 500 mg Tablet PO SCH (08:17)
[2016-08-23] MEDS: Pantoprazole 4 mg/mL 10 mL Inj IVPUSH SCH (09:35)
[2016-08-23 13:08] VITALS: BP 118/67; PULSE 70; RESP 20; O2SAT 97
--- NOTE | 2016-08-23 15:06 | NUR ---
Activity/Diet Pt up and ambulating the unit several times today. Steady gait. Declined Lovenox. Will continue encouraging pt to ambulate. Pt tolerated a clear breakfast tray with no abdominal pain or nausea. Advanced diet to full liquid diet. Pt ate few bites of full liquid diet, but did not like the lunch options on the tray. No nausea or abdominal pain with lunch. Advanced diet to general, encouraged pt to pick low fat foods and to go slowly with advancing diet. Care continues. Addendum: 08/23/16 at 1844 by JOSE A CONDE RN Pt had no nausea and abdominal pain with dinner.
[2016-08-23 20:55] VITALS: BP 123/72; PULSE 61; RESP 20; O2SAT 95
--- NOTE | 2016-08-23 23:33 | PCM.PNMED ---
Subjective Date of Service Aug 23, 2016 Subjective Patient is feeling a little bit better and would like to try to advance her diet. She is a little bit reluctant to advance to quickly however. Exam Vital Signs Vital Sign - Last Date Time Temp Pulse Resp B/P Pulse Ox O2 Delivery O2 Flow Rate FiO2 08/23/16 20:55 36.9 61 20 123/72 95 Room Air Intake and Output 08/22/16 08/22/16 08/23/16 Cumulative From/Thru 15:00 23:00 07:00 08/20/16 22:25 - 08/23/16 06:16 Intake Total 2200 ml 1361 ml 7662 ml Output Total 500 ml 2700 ml 5230 ml Balance 1700 ml -1339 ml 2432 ml Intake Oral 1099 ml 400 ml 1499 ml IV Total 1101 ml 961 ml 6163 ml Output Urine Total 500 ml 2700 ml 5150 ml Emesis 80 ml # Voids 5 6 # Bowel Movements 0 0 0 Exam General: Patient is in no apparent distress. She is beginning to ambulate in the hallways and is asking to not have her Lovenox shot. HEENT: Head is atraumatic normocephalic. Eyes: Pupils are equally round and reactive to light and accommodation. Extraocular muscles are intact. Sclera are white anicteric. Subconjunctival mucosa is pink. Ears and nose are unremarkable. Oropharynx: There is no mucosal lesions, there is no thrush, there is no pharyngitis. Neck: Is supple, there are no nodes, or masses, or tenderness. Chest: Is clear to auscultation and percussion. There are no rales, rhonchi, wheezes or rubs. Heart: Rate, rhythm is regular. There is no murmur, rub or gallop. Abdomen: Good bowel sounds are present. Abdomen is soft, with continued improvement in epigastric tenderness. There is no rebound tenderness, no guarding, no organomegaly or masses were appreciated. Extremities: Are symmetrical and well perfused. There is no edema, there is no cellulitis, no rash. Neurologic: There are no focal neurological deficits. Cranial nerves II through XII are intact. There are no sensory or motor deficits. Psychiatric: Patients mood is calm and shows no sign of agitation. Genital: Deferred Rectal: Deferred Lab and Diagnostics Lipase is 102 down from over 6,900 Result Diagram: 1/28/17 0540 08/23/16 0540 Microbiology Name: DAWOODKVNGRADPHILIP Werner Age/Sex: 70/F Attend Dr: Mejia Griffin MD Acct: [id number] Unit: [id number] Status: AD[place] [facility] [place]08/21/16 Disch: Specimen: [id number] Collected: 08/20/16 Status: RES Req#: [id number] Received: 08/20/16 Source: URINE EUGENIO You Desc : SAMMI De Leon Dr: LIU SMITH MD Ordered: URINE CULT Procedure Result Verified Site Microbiology BRUNO CULT URINE Preliminary 08/21/16-0956 No growth to date X-Rays, CTs and MRIs PROCEDURE: CT ABDOMEN AND PELVIS WITH CONTRAST (PNL-7102) INDICATIONS: acute pancreatitis TECHNIQUE: After the administration of intravenous contrast, 5 mm thick sections acquired from the diaphragm to the symphysis. 5 mm coronal and sagittal reformats were acquired. For radiation dose reduction, the following was used: automated exposure control, adjustment of mA and/or kV according to patient size. COMPARISON: [facility], CT, CT ABD PELVIS W CON, 04/22/2016, 8:14. FINDINGS: Image quality: Excellent. ABDOMEN: Lung bases: There is mild dependent basilar atelectasis. No pleural effusion. Patient is status post right mastectomy. Solid organs: Liver and spleen are normal in size and enhancement. There is likely trace focal fat at the falciform ligament. Gallbladder is unremarkable. Biliary system is non dilated. No adrenal nodules. Kidneys demonstrate normal size and enhancement, without hydronephrosis. The pancreas demonstrates overall homogeneous enhancement. There is diffuse. Atretic fat stranding. No discrete peripancreatic fluid collections. Peritoneum and bowel: Bowel loops demonstrate normal wall thickness and caliber. The appendix is thin walled and gas filled. No free fluid or air. Nodes and vessels: No retroperitoneal or mesenteric adenopathy by size criteria. Aorta and inferior vena cava are normal in size. Miscellaneous: No ventral hernias. PELVIS: Genitourinary: Bladder wall thickness is normal. The right ovary is unremarkable. Multiple calcified fibroids are present within the uterus. The left ovary has a 1.7 cm cystic lesion within. Miscellaneous: No inguinal hernias or adenopathy. Bones: No suspicious bony lesions. No vertebral body compression fractures. Right hip arthroplasty is intact. IMPRESSION: 1. Acute pancreatitis, likely the edematous subtype. No findings to suggest pancreatic necrosis or pancreatic pseudocyst. 2. Normal appendix. Note: The preliminary [facility] interpretation and the final report are concordant. 3. Left ovarian cystic lesion greater than 1 cm diameter. Nonemergent pelvic ultrasound is recommended to further characterize this finding. Dictated by: Mikayla Ricci M.D. on 08/21/2016 at 8:52 Approved by: Mikayla Ricci M.D. on 08/21/2016 at 9:01 PROCEDURE: US ABDOMEN ([id number]) INDICATIONS: Pancreatitis/Possibly Gallstone induced TECHNIQUE: Real-time scanning was performed of the abdominal and retroperitoneal organs, with image documentation. COMPARISON: [facility], CT, CT ABD PELVIS W CON, 08/21/2016, 2:43. FINDINGS: Liver: Liver is normal in size and homogeneous in echotexture. Gallbladder: The gallbladder appears normal Biliary ducts: Intrahepatic bile ducts are non-dilated. Extrahepatic bile duct caliber measures 2.3 mm. Normal is 6-7 mm or less in diameter, or 10 mm or less post-cholecystectomy. Pancreas: Visualized portions of the pancreas are sonographically normal although the CT scan also obtained same day does show definite evidence of pancreatitis.. Spleen: Spleen is normal in size and homogeneous in echotexture. Kidneys: Kidneys are normal in size and echotexture. Right kidney measures 10.8 cm long; left kidney measures 10.4 cm long. No hydronephrosis or nephrolithiasis. No solid masses. Aorta: Visualized aorta is normal in caliber at less than 3 cm. Iliacs: Proximal common iliac arteries are normal in caliber at less than 2.5 cm. IVC: Intrahepatic inferior vena cava is patent. Miscellaneous: No free abdominal fluid. IMPRESSION: No gallstones or biliary distention found. Pancreatic duct is normal in caliber in the pancreatic parenchyma visualized appears normal sonographically. Please note that the CT scanning also obtained same day shows definite CT evidence of acute pancreatitis, moderate in severity. Generally sonographic detection of pancreatitis is possible only in the setting of very severe pancreatitis rather than mild to moderate pancreatitis. Dictated by: Avila Packer M.D. on 08/21/2016 at 9:28 Approved by: Avila Packer M.D. on 08/21/2016 at 9:32 Cardiac Echo Impressions Echocardiogram Report Name: PHILIP OTERO Study Date: 06/27/2015 Height: 64 in Hospital Exam Location: [facility] Weight: 140 lb Gender: Female BSA: 1.7 m2 : 1945 Age: 69 yrs BP: 124/64 mmHg Reason For Study: Dyspnea Ordering Physician: Performed By: YURY Araiza Referring Physician: Marianne Avelar Interpretation Summary Normal left ventricle size with ejection fraction 60-65%. Mildly dilated left atrium. Mild mitral regurgitation. The right ventricular systolic pressure is estimated at 20 mmHg assuming a right atrial pressure of 3 mm Hg. Comparison is made with the echocardiogram of 08/04/13, there has been no significant change. Assessment & Plan Philip Otero is a 70 wo woman with Breast Cancer, Melanoma and Epilepsy disorder who presents to [facility] Emergency department with complaints of abdominal pain. Consistent with Acute Pancreatitis. 1. Acute Epigastric pain secondary to Acute pancreatitis. Present on admission improved today Etiology unclear but Hypertriglyceridemia, Viral, Gallstone are all considered. no fluid collection/necrosis/stones. not severe pancreatitis given benign labs, no SIRS. Labs not suggestive of biliary obstruction, biliary sludge. BISAP score 1 (no increased risk of complications), - We will continue IV fluid resuscitation with LR @ 80 cc/hr(reduced from 125 mL an hour) - CT of the Abdomen confirms the diagnosis of pancreatitis. There does not appear to be any necrosis or pseudocyst formation. - We will begin to advance diet as tolerated. It appears the patient has quite a finicky appetite, therefore will allow her to pick items from the menu that she believes will not bother her. - We will continue to advance diet as tolerated. 2. Breast CA s/p mastectomy, chemo/Radiation on letrozole - follow up with - continuing Anastrozole (not felt to cause pancreatitis) 3. Seizure disorder, chronic stable - We will continue with Keppra 500 intravenously bid, as patient is unable to take by mouth - Acetaminophen as needed for mild pain/fever/headache - Bowel regimen as needed - Antiemetic as needed Disposition: We will expect patient to be discharged the next 24-48 hours. Discussed with patient's at bedside and he agrees with the above plan. . Pain Evaluation: Adequate Pain Control GI Prophylaxis: Proton Pump Inhibitor VTE Prophylaxis: Sub-Q Enoxaparin VTE Mechanical Devices: Intermittant Pneumatic CD Resuscitation Status: CPR: Attempt Resuscitation Jalil Cardozo MD Aug 23, 2016 23:33
--- NOTE | 2016-08-24 03:39 | NUR ---
Activity Patient A&OX3, and pleasant this evening. Was seen ambulating independently with IV pole at beginning of shift. Patient denies any N/V, or abd pain, and has been up to bathroom as needed independently. IV is running LR at 80cc/hr. Patient is currently sleeping, and has been able to sleep an adequate portion of the night. Will continue care, and continue Q 1 hour checks.
[2016-08-24 04:53] VITALS: BP 124/70; PULSE 59; RESP 18; O2SAT 96
[2016-08-24] MEDS: Lactated Ringer's 1,000 ML IV SCH (05:45)
[2016-08-24] MEDS: levETIRAcetam 500 mg/100 mL NS IV SCH ×2 (05:45)
[2016-08-24 06:39] LABS: BASOPHILS % (AUTO) 0.6 % (0-3); EOSINOPHILS % (AUTO) 4.1 % (0-5); MONOCYTES % (AUTO) 12.1 % (4-12); Mean Corpuscular Hemoglobin 31.7 pg (27.0-35.0); Mean Corpuscular Volume 92.7 fL (81-100); NEUTROPHILS % (AUTO) 58.3 % (40-74); Platelet Count 233 bil/L (150-400)
[2016-08-24] MEDS: Pantoprazole 4 mg/mL 10 mL Inj IVPUSH SCH (09:28)
[2016-08-24] MEDS: Calcium Carbonate (Oyster Shell) 500 mg Tablet PO SCH (09:29)
--- NOTE | 2016-08-24 10:43 | PCM.DIMED ---
Discharge Instructions Date of Service Aug 24, 2016 Dates of Hospitalization Aug 21, 2016 at 01:21 Discharge Diagnosis Discharge Diagnosis Acute Pancreatitis Diet Heart Healthy Activity No restrictions Patient Instructions Follow-up Provider: Pérez Avelar MD Follow-up with PCP in: 1 week Provider: Harmeet Luna MD Follow-up in: 2 weeks (For evaluation of recurrent Pancreatitis) Jalil Cardozo MD Aug 24, 2016 10:43
--- NOTE | 2016-08-24 11:12 | NUR ---
DISCHARGE Patient has been tolerating liquids well and her diet fairly. Denies abdominal pain. + BM today. Denies SOB. Ambulating independently in the hallway. Gait is steady. Voiding without any problems. IV saline lock d/cd. Discharge instructions and care notes was given to the patient and she verbalized understanding. Discharged to home with her and all her personal belongings. (Copy of D/C is in the chart).
--- NOTE | 2016-09-01 13:26 | PCM.DC.MED ---
Discharge Summary Date of Service Aug 24, 2016 Dates of Hospitalization Date of Hospital Admission Aug 21, 2016 at 01:21 Date of Discharge: Aug 24, 2016 Providers: Admitting Physician: Mejia Griffin MD Primary Care Physician: Pérez Avelar MD Attending Physician: Mejia Griffin MD Diagnosis at Time of Discharge Diagnosis at Time of Discharge Acute Pancreatitis Procedures XRay, CTs & MRIs PROCEDURE: CT ABDOMEN AND PELVIS WITH CONTRAST ([id number]) INDICATIONS: acute pancreatitis TECHNIQUE: After the administration of intravenous contrast, 5 mm thick sections acquired from the diaphragm to the symphysis. 5 mm coronal and sagittal reformats were acquired. For radiation dose reduction, the following was used: automated exposure control, adjustment of mA and/or kV according to patient size. COMPARISON: [facility], CT, CT ABD PELVIS W CON, 04/22/2016, 8:14. FINDINGS: Image quality: Excellent. ABDOMEN: Lung bases: There is mild dependent basilar atelectasis. No pleural effusion. Patient is status post right mastectomy. Solid organs: Liver and spleen are normal in size and enhancement. There is likely trace focal fat at the falciform ligament. Gallbladder is unremarkable. Biliary system is non dilated. No adrenal nodules. Kidneys demonstrate normal size and enhancement, without hydronephrosis. The pancreas demonstrates overall homogeneous enhancement. There is diffuse. Atretic fat stranding. No discrete peripancreatic fluid collections. Peritoneum and bowel: Bowel loops demonstrate normal wall thickness and caliber. The appendix is thin walled and gas filled. No free fluid or air. Nodes and vessels: No retroperitoneal or mesenteric adenopathy by size criteria. Aorta and inferior vena cava are normal in size. Miscellaneous: No ventral hernias. PELVIS: Genitourinary: Bladder wall thickness is normal. The right ovary is unremarkable. Multiple calcified fibroids are present within the uterus. The left ovary has a 1.7 cm cystic lesion within. Miscellaneous: No inguinal hernias or adenopathy. Bones: No suspicious bony lesions. No vertebral body compression fractures. Right hip arthroplasty is intact. IMPRESSION: 1. Acute pancreatitis, likely the edematous subtype. No findings to suggest pancreatic necrosis or pancreatic pseudocyst. 2. Normal appendix. Note: The preliminary [facility] interpretation and the final report are concordant. 3. Left ovarian cystic lesion greater than 1 cm diameter. Nonemergent pelvic ultrasound is recommended to further characterize this finding. Dictated by: Mikayla Ricci M.D. on 08/21/2016 at 8:52 Approved by: Mikayla Ricci M.D. on 08/21/2016 at 9:01 PROCEDURE: US ABDOMEN ([id number]) INDICATIONS: Pancreatitis/Possibly Gallstone induced TECHNIQUE: Real-time scanning was performed of the abdominal and retroperitoneal organs, with image documentation. COMPARISON: [facility], CT, CT ABD PELVIS W CON, 08/21/2016, 2:43. FINDINGS: Liver: Liver is normal in size and homogeneous in echotexture. Gallbladder: The gallbladder appears normal Biliary ducts: Intrahepatic bile ducts are non-dilated. Extrahepatic bile duct caliber measures 2.3 mm. Normal is 6-7 mm or less in diameter, or 10 mm or less post-cholecystectomy. Pancreas: Visualized portions of the pancreas are sonographically normal although the CT scan also obtained same day does show definite evidence of pancreatitis.. Spleen: Spleen is normal in size and homogeneous in echotexture. Kidneys: Kidneys are normal in size and echotexture. Right kidney measures 10.8 cm long; left kidney measures 10.4 cm long. No hydronephrosis or nephrolithiasis. No solid masses. Aorta: Visualized aorta is normal in caliber at less than 3 cm. Iliacs: Proximal common iliac arteries are normal in caliber at less than 2.5 cm. IVC: Intrahepatic inferior vena cava is patent. Miscellaneous: No free abdominal fluid. IMPRESSION: No gallstones or biliary distention found. Pancreatic duct is normal in caliber in the pancreatic parenchyma visualized appears normal sonographically. Please note that the CT scanning also obtained same day shows definite CT evidence of acute pancreatitis, moderate in severity. Generally sonographic detection of pancreatitis is possible only in the setting of very severe pancreatitis rather than mild to moderate pancreatitis. Dictated by: Avila Packer M.D. on 08/21/2016 at 9:28 Approved by: Avila Packer M.D. on 08/21/2016 at 9:32 Cardiac Echo Impression Echocardiogram Report Name: PHILIP OTERO Study Date: 06/27/2015 Height: 64 in Hospital Exam Location: [facility] Weight: 140 lb Gender: Female BSA: 1.7 m2 : 1945 Age: 69 yrs BP: 124/64 mmHg Reason For Study: Dyspnea Ordering Physician: Performed By: YURY Araiza Referring Physician: Marianne Avelar Interpretation Summary Normal left ventricle size with ejection fraction 60-65%. Mildly dilated left atrium. Mild mitral regurgitation. The right ventricular systolic pressure is estimated at 20 mmHg assuming a right atrial pressure of 3 mm Hg. Comparison is made with the echocardiogram of 08/04/13, there has been no significant change. Brief History Philip Otero is a 70 wo woman with Breast Cancer, Melanoma and Epilepsy disorder who presents to [facility] Emergency department with complaints of abdominal pain Patient reported the pain started around 8:30 PM after eating dinner. Pain located in the lower mid abdomen, crampy, 8/10 intensity with no radiation to her back. Associated symptoms includes nausea and vomiting, chills and feeling sweaty. Patient reported similar to her episode of pancreatitis last March. Etiology of her pancreatitis was never determined. This will be her third episode of pancreatitis. Patient denies any heavy alcohol consumption and she still have her gallbladder. Case discussed with Dr Magaña. Lipase 6950. Fluids given. CT Abdomen was requested. Patient was admitted to the hospitalists service for further evaluation and treatment. Hospital Course Philip Otero is a 70 wo woman with Breast Cancer, Melanoma and Epilepsy disorder who presents to [facility] Emergency department with complaints of abdominal pain. Consistent with Acute Pancreatitis. 1. Acute Epigastric pain secondary to Acute pancreatitis. Present on admission almost completely resolved. Etiology unclear but Hypertriglyceridemia, Viral, Gallstone are all considered. no fluid collection/necrosis/stones. not severe pancreatitis given benign labs, no SIRS. Labs not suggestive of biliary obstruction, biliary sludge. BISAP score 1 (no increased risk of complications), - We will continue IV fluid resuscitation with LR @ 80 cc/hr(reduced from 125 mL an hour) - CT of the Abdomen confirms the diagnosis of pancreatitis. There does not appear to be any necrosis or pseudocyst formation. - We will begin to advance diet as tolerated. It appears the patient has quite a finicky appetite, therefore will allow her to pick items from the menu that she believes will not bother her. - We will continue to advance diet as tolerated. 2. Breast CA s/p mastectomy, chemo/Radiation on letrozole - follow up with - continuing Anastrozole (not felt to cause pancreatitis) 3. Seizure disorder, chronic stable - We will continue with Keppra 500 intravenously bid, as patient is unable to take by mouth - Acetaminophen as needed for mild pain/fever/headache - Bowel regimen as needed - Antiemetic as needed Disposition: Will discharge patient home today. Discussed with patient's at bedside and he agrees with the above plan. . Exam Exam General: Patient is in no apparent distress. She is beginning to ambulate in the hallways and is asking to not have her Lovenox shot. HEENT: Head is atraumatic normocephalic. Eyes: Pupils are equally round and reactive to light and accommodation. Extraocular muscles are intact. Sclera are white anicteric. Subconjunctival mucosa is pink. Ears and nose are unremarkable. Oropharynx: There is no mucosal lesions, there is no thrush, there is no pharyngitis. Neck: Is supple, there are no nodes, or masses, or tenderness. Chest: Is clear to auscultation and percussion. There are no rales, rhonchi, wheezes or rubs. Heart: Rate, rhythm is regular. There is no murmur, rub or gallop. Abdomen: Good bowel sounds are present. Abdomen is soft, with little to no epigastric tenderness. There is no rebound tenderness, no guarding, no organomegaly or masses were appreciated. Extremities: Are symmetrical and well perfused. There is no edema, there is no cellulitis, no rash. Neurologic: There are no focal neurological deficits. Cranial nerves II through XII are intact. There are no sensory or motor deficits. Psychiatric: Patients mood is calm and shows no sign of agitation. Genital: Deferred Rectal: Deferred Test 08/20/16 22:48 08/20/16 23:04 08/21/16 03:50 08/22/16 05:20 Lactic Acid Level 1.0mmol/L (0.4-2.0) Triglycerides Level 81mg/dL (0-149) Cholesterol Level 181mg/dL (100-199) LDL Cholesterol, Calculated 107.800mg/dL (0-99) VLDL Cholesterol 16.200mg/dL HDL Cholesterol 57mg/dL (>39) Cholesterol/HDL Ratio 3.18 (0.0-4.4) Urine Color Straw (YELLOW) Urine Appearance Hazy (CLEAR,HAZY) Urine pH 7.0 (5.0-8.0) Urine Specific [place] 1.020 (1.003-1.035) Urine Protein Negativemg/dL (NEG,TRACE) Urine Glucose (UA) Negativemg/dL (NEGATIVE) Urine Ketones Negativemg/dL (NEGATIVE) Urine Occult Blood Negative (NEGATIVE) Urine Nitrite Negative (NEGATIVE) Urine Bilirubin Negative (NEGATIVE) Urine Urobilinogen Normalmg/dL (NORMAL) Urine Leukocyte Esterase Trace (NEGATIVE) Urine RBC 0-2/hpf (0-2) Urine WBC 0-5/hpf (0-5) Urine Epithelial Cells Occasional/hpf (NONE-MOD) Urine Crystals Amorphous phosphates Urine Bacteria None/hpf (NONE-FEW) Urine Hyaline Casts None/lpf (NONE) Urine Granular Casts None seen (NONE SEEN) Urine Waxy Casts None seen (NONE SEEN) Urine Red Blood Cell Casts None seen (NONE SEEN) Urine White Blood Cell Casts None seen (NONE SEEN) Urine Mucus None seen (None Seen) Urine Trichomonas None seen (NONE SEEN) Urine Yeast None (NONE SEEN) Urine Culture Reflexed Indicated Hold Purple Top Tube Received (Received) Hold Blue Top Tube Received (Received) Hold [place] Top Tube Received (Received) Prothrombin Time 10.7sec (8.1-12.5) Prothromb Time International Ratio 1.00ratio Phosphorus Level 2.9mg/dL (2.5-4.9) Magnesium Level 1.9mg/dL (1.6-2.6) Test 08/24/16 06:10 White Blood Count 6.4th/mm3 (3.8-10.1) Red Blood Count 3.57mil/mm3 (3.90-5.20) Hemoglobin 11.3g/dL (12.0-15.6) Hematocrit 33.1% (35.0-46.0) Mean Corpuscular Volume 92.7fL (81-100) Mean Corpuscular Hemoglobin 31.7pg (27.0-35.0) Mean Corpuscular Hemoglobin Concent 34.1% (32.0-37.0) Red Cell Distribution Width 12.9% (12.3-15.4) Platelet Count 233bil/L (150-400) Neutrophils (%) (Auto) 58.3% (40-74) Lymphocytes (%) (Auto) 24.9% (14-46) Monocytes (%) (Auto) 12.1% (4-12) Eosinophils (%) (Auto) 4.1% (0-5) Basophils (%) (Auto) 0.6% (0-3) Sodium Level 142mEq/L (134-144) Potassium Level 3.6mEq/L (3.5-5.2) Chloride Level 107mEq/L (97-108) Carbon Dioxide Level 26mmol/L (18-29) Blood Urea Nitrogen 8mg/dL (8-27) Creatinine 0.60mg/dL (0.57-1.00) Estimat Glomerular Filtration Rate 142mL/min (>59) Glucose Level 90mg/dL (60-99) Calcium Level 8.6mg/dL (8.5-10.1) Total Bilirubin 0.5mg/dL (0.0-1.2) Aspartate Amino Transf (AST/SGOT) 16U/L (0-50) Alanine Aminotransferase (ALT/SGPT) 11U/L (0-32) Alkaline Phosphatase 36U/L (25-165) Total Protein 5.4g/dL (6.4-8.4) Albumin 3.1g/dL (3.4-5.0) Lipase 53U/L (13-60) Microbiology Results Name: PHILIP OTERO Age/Sex: 70/F Attend Dr: Mejia Griffin MD Acct: [id number] Unit: [id number] Status: ADM IN [place] [facility] [place]08/21[place] Disch: Specimen: [id number] Collected: 08/20/16 Status: ARNOLDO Goldstein#: [id number] Received: 08/20/16 Source: URINE CC Sp Desc : SAMMI De Leon Dr: LUIS,ED Ordered: URINE CULT Procedure Result Verified Site Microbiology BRUNO CULT URINE Preliminary 08/21/16 No growth to date Discharge Medications Discharge Medications Anastrozole (Anastrozole) 1 Mg Tablet 1 MG PO DAILY (Reported) Calcium Carbonate/Vitamin D3 (Calcium 250+D Tablet) 1 Each Tablet 1 EACH PO DAILY (Reported) Cholecalciferol (Vitamin D3) (Vitamin D3) 2,000 Unit Capsule 2,000 UNIT PO BID ( Reported) Levetiracetam (Levetiracetam) 500 Mg Tablet 500 MG PO BID (Reported) As needed Zolpidem (Zolpidem) 5 Mg Tablet 2.5 MG PO HS PRN PRN For Insomnia (Reported) Followup Plan Disposition: Patient was discharged home with her . Discharge Diet: Heart Healthy Discharge Activity: No restrictions Follow-up Provider: Pérez Avelar MD Follow-up with PCP in: 1 week Provider: Harmeet Luna MD Follow-up in: 2 weeks (For evaluation of recurrent Pancreatitis) Time spent The time taken to discharge this patient was well over thirty minutes, over half of which was involved in counseling and coordination of care. Jalil Cardozo MD Sep 01, 2016 13:25
[2016-11-18] MEDS ORDERED: BIOT10TA PO (14:37)
== END 2016-08-24 11:15 | disposition home or self-care (01) | DRG 440 ==
LOC: SED 22:22 → OSC 08-21 01:21
PROVIDERS: ADMIT Hospitalist; ATTEND Hospitalist
DX: K85.90 Acute pancreatitis without necrosis or infection, unspecified (principal); Z90.12 Acquired absence of left breast and nipple; Z92.21 Personal history of antineoplastic chemotherapy; Z92.3 Personal history of irradiation; G40.909 Epilepsy, unspecified, not intractable, without status epilepticus; C50.919 Malignant neoplasm of unspecified site of unspecified female breast; Z17.0 Estrogen receptor positive status [ER+]

== ENCOUNTER 2017-01-17 16:34 | Emergency (ER) | payer MEDICARE ==
[~2017-01-17 16:34] MED LIST changes: +BIOT10TA PO; -CALC-235 PO
[2017-01-17 16:36] VITALS: BP 119/75; PULSE 62; RESP 18; O2SAT 100
--- NOTE | 2017-01-17 18:21 | ED.REPORT ---
HPI-General Illness Date of Service Jan 17, 2017 ED Provider: Antoni Middleton PA-C Mary Carmen is a 76-year-old female presenting with chief complaint of a low-grade fever. She reports having a pancreatic stent placed on the at [facility] to treat recurrent pancreatitis. Her recovery was progressing well until today when she began to feel quite fatigued, sleepy and noted to have a low-grade fever as high as 100.3. She contacted the nurse line at [facility] and was advised to present to the emergency department. She denies abdominal pain, diarrhea, melena, hematochezia, vomiting, urinary symptoms. Nursing Notes Stated Complaint: SLIGHT FEVER AFTER STENT Chief Complaint: General Complaint Nursing Notes Reviewed: Yes Allergies: Coded Allergies: TAPE (Verified Allergy, Unknown, 04/22/16) Scheduled Anastrozole (Anastrozole) 1 Mg Tablet 1 MG PO DAILY Biotin (Biotin) 10 Mg Tablet 10 MG PO every other day Cholecalciferol (Vitamin D3) (Vitamin D3) 2,000 Unit Capsule 2,000 UNIT PO BID Levetiracetam (Levetiracetam) 500 Mg Tablet 500 MG PO BID Scheduled PRN Zolpidem (Zolpidem) 5 Mg Tablet 2.5 MG PO HS PRN PRN For Insomnia General Time Seen by MD: 18:08 Chief Complaint Fever Past Medical History Past Medical History left-sided breast cancer Past Surgical History left mastectomy hip replacement Family History Noncontributory Smoking History Former Smoker Social History Alcohol Use: Denies alcohol use Drug Use: Denies drug use Other Social History: Good social support, , Local resident Ambulatory Status Independent Review of Systems Negative unless stated otherwise in history of present illness Physical Exam General: Tired appearing, well developed, well nourished, no acute distress. Head: Atraumatic, normocephalic. Eyes: No scleral icterus or injection. No discharge. Vision grossly intact. ENT: Voice clear, hearing grossly intact. Respiratory: Regular rate and rhythm. Breath sounds present, clear to auscultation and equal bilaterally. No respiratory distress. No increased work of breathing, speaks in complete sentences. Cardiovascular: Regular rate and rhythm, without murmur, gallop or rub. No pedal edema. Gastrointestinal: Abdomen flat and non-tender without guarding or rebound. Normal to inspection. Bowel sounds normoactive. Back: Normal to inspection, negative CVA tenderness Skin: Warm and dry. Neurological: Grossly nonfocal. Psychological: Alert and oriented. Speech appropriate, linear and logical. Behavior appropriate. Vital Signs Vital Signs Date Time Temp Pulse Resp B/P Pulse Ox O2 Delivery O2 Flow Rate FiO2 01/17/17 22:34 37 76 17 127/55 98 Room Air 01/17/17 19:18 37.1 69 16 114/51 98 Room Air 01/17/17 16:36 37.0 62 18 119/75 100 Room Air Normal Interpretation & Diagnostics Lab Results Interpretation Result Diagram: 01/17/175 01/17/17 1835 Test 01/17/17 18:35 White Blood Count 13.4th/mm3 (3.8-10.1) Red Blood Count 3.64mil/mm3 (3.90-5.20) Hemoglobin 11.3g/dL (12.0-15.6) Hematocrit 33.9% (35.0-46.0) Mean Corpuscular Volume 93.1fL (81-100) Mean Corpuscular Hemoglobin 31.0pg (27.0-35.0) Mean Corpuscular Hemoglobin Concent 33.3% (32.0-37.0) Red Cell Distribution Width 13.0% (12.3-15.4) Platelet Count 311bil/L (150-400) Neutrophils (%) (Auto) 78.2% (40-74) Lymphocytes (%) (Auto) 10.9% (14-46) Monocytes (%) (Auto) 9.3% (4-12) Eosinophils (%) (Auto) 1.0% (0-5) Basophils (%) (Auto) 0.2% (0-3) Sodium Level 139mEq/L (134-144) Potassium Level 4.1mEq/L (3.5-5.2) Chloride Level 102mEq/L (97-108) Carbon Dioxide Level 24mmol/L (18-29) Blood Urea Nitrogen 9mg/dL (8-27) Creatinine 0.67mg/dL (0.57-1.00) Estimat Glomerular Filtration Rate 125mL/min (>59) Glucose Level 103mg/dL (60-99) Lactic Acid Level 0.8mmol/L (0.4-2.0) Calcium Level 8.8mg/dL (8.5-10.1) Total Bilirubin 0.3mg/dL (0.0-1.2) Aspartate Amino Transf (AST/SGOT) 13U/L (0-50) Alanine Aminotransferase (ALT/SGPT) 18U/L (0-32) Alkaline Phosphatase 51U/L (25-165) Total Protein 5.8g/dL (6.4-8.4) Albumin 3.2g/dL (3.4-5.0) Lipase 39U/L (13-60) X-Ray Interpretation Xray Interpretation: PROCEDURE: X-RAY ABDOMEN, ONE VIEW ([id number]) INDICATIONS: 71 year-old female with pancreatic stent placed 10 days ago. IMPRESSION: Pancreatic duct stent is present, with lateral end in the expected position of the second portion of the duodenum. Interpretation / Wet Read by: Interpret - Radiologist Re-Eval/Medical Decision Med Decision/Clinical Course 71-year-old female status post a great extent placement January 07 which was complicated by postoperative pancreatitis presents with chief complaint of low- grade fever. Patient states her recovery was progressing well until today when she began to feel fatigued, sleepy and fevers. Measured fever at home of 100.3 F. Abdominal pain, melena, hematochezia, urinary symptoms, vomiting. Physical examination reveals a well-appearing but tired woman with a nontender abdomen. Vital signs are within normal limits. She is afebrile in the department. CBC reveals a looks cytosis of 13.4 with a left shift, mild anemia with a hematocrit of 33.9. CMP is unremarkable, revealing only protein low at 5.8 and albumin low at 3.2. Bilirubin, AST, ALT and alkaline phosphatase are within normal limits. Lipase is normal. Lactic acid is normal at 0.8. I discussed the case with Dr. Randolph, who advised consulting GI. I discussed the case with Dr. Lynch who recommends a plain film to confirm stent placement and consultation with the surgical group at [facility]. I spoke with Dr. Karimi at [facility] who reviewed her records. He reports that her leukocytosis is consistent with a previous blood draw on January 11. He does not feel at this presentation represents a developing infection and that she is safe to be discharged to home with routine surgical follow-up as planned. I discussed this with the patient was relieved, ready to be discharged to home. Provided emergency return precautions. Patient verbalizes understanding of and consented to the plan. Consultation #1: Referral / Consult Name: Darío Lynch MD Call Returned at: 20:48 Note: Recommend getting an x-ray to see if the stent is still in place and then contacting the surgical group at [facility]. Consultation #2: Note: Discussed case with Dr. blue of [facility] gastroenterology. He reviewed the patient's chart. Reports a white count on January 11, 1 on January 10. He does not find this presentation concerning for infection. Advises routine postoperative follow-up as previously arranged, return precautions including fever, shaking chills, melena/hematochezia, abdominal pain. Consultation #3: Referral / Consult Name: Darío Lynch MD Note: Advises abdominal x-rays confirmed stent placement, consultation with [facility] surgery group. He does not believe the patient should be discharged until his consultation occurs. Discharge & Departure Primary Impression: Leukocytosis Leukocytosis type: unspecified Qualified Code: D72.829 - Elevated white blood cell count, unspecified Disposition: Home Discharge Condition All VS Reviewed: Yes Condition: Stable Additional Instructions: Evaluation in the emergency department for postsurgical fever includes history, physical examination, blood work, x-ray and consultation with the surgical group at [facility], all of which are reassuring that her symptoms are unlikely to be caused by an immediately dangerous conditions such as an infection. We believe that you are stable and safe to be discharged to home. Follow-up with your surgeon as planned. Return to emergency department for any new or worsening symptoms including abdominal pain, sustained fever, vomiting, black/tarry stool. Referrals: Alie Rios MD (PCP) EDSupervising Provider for APC: Jose Randolph MD copies to: Alie Rios MD, Seth PA-C Jan 17, 2017 18:21
[2017-01-17 18:47] LABS: BASOPHILS % (AUTO) 0.2 % (0-3); MONOCYTES % (AUTO) 9.3 % (4-12); Mean Corpuscular Volume 93.1 fL (81-100); NEUTROPHILS % (AUTO) 78.2 % (40-74); Platelet Count 311 bil/L (150-400)
[2017-01-17 19:18] VITALS: BP 114/51; PULSE 69; RESP 16; O2SAT 98
--- NOTE | 2017-01-17 21:34 | DRSVH ---
PROCEDURE: X-RAY ABDOMEN, ONE VIEW ([id number]) INDICATIONS: 71 year-old female with pancreatic stent placed 10 days ago. TECHNIQUE: One view of the abdomen acquired. COMPARISON: [facility] [employer] [facility], US, US PELVIC+TRANSVAG, 11/21/2016, 13:06. [facility], MR, MR ABD W&WO CON, 10/03/2016, 7:58. FINDINGS: Surgical changes and devices: A pancreatic stent is present and in expected position, with tip in the second portion of the duodenum. Patient is status post right hip arthroplasty. Bowel: Bowel gas pattern is normal. Soft tissues: Several small calcified uterine fibroids again noted. Visualized solid organ contours a ppear normal in size. Bones: No suspicious bony lesions. IMPRESSION: Pancreatic duct stent is present, with lateral end in the expected position of the second portion of the duodenum. Dictated by: Ivan Bush M.D. on 01/17/2017 at 21:30 Approved by: Ivan Bush M.D. on 01/17/2017 at 21:32
[2017-01-17 22:34] VITALS: BP 127/55; PULSE 76; RESP 17; O2SAT 98
== END 2017-01-17 22:34 | disposition home or self-care (01) ==
LOC: SED 16:34
DX: D72.829 Elevated white blood cell count, unspecified (principal); Z96.89 Presence of other specified functional implants; Z87.891 Personal history of nicotine dependence; Z91.048 Other nonmedicinal substance allergy status

== ENCOUNTER 2017-01-19 12:46 | Emergency (ER) | payer MEDICARE ==
[~2017-01-19] VITALS: Ht 162.6 cm; Wt 63.6 kg
[2017-01-19 12:51] VITALS: BP 107/68; PULSE 76; RESP 17; O2SAT 100
[2017-01-19 14:44] LABS: BASOPHILS % (AUTO) 0.1 % (0-3); EOSINOPHILS % (AUTO) 0.1 % (0-5); Mean Corpuscular Hemoglobin 30.8 pg (27.0-35.0); Mean Corpuscular Volume 92.8 fL (81-100); NEUTROPHILS % (AUTO) 86.1 % (40-74); Platelet Count 337 bil/L (150-400)
[2017-01-19] MEDS ORDERED: 0.9% Sodium Chloride 1,000 ML IV ONE ×2 (15:44→18:58)
[2017-01-19 16:01] VITALS: BP 110/61; PULSE 74; RESP 16; O2SAT 100
[2017-01-19 16:09] LABS: BASOPHILS % (AUTO) 0.1 % (0-3); EOSINOPHILS % (AUTO) 0.1 % (0-5); Mean Corpuscular Hemoglobin 30.6 pg (27.0-35.0); Mean Corpuscular Volume 92.5 fL (81-100); NEUTROPHILS % (AUTO) 84.5 % (40-74); Platelet Count 303 bil/L (150-400)
--- NOTE | 2017-01-19 16:29 | DRSVH ---
PROCEDURE: X-RAY CHEST, TWO VIEWS ([id number]) INDICATIONS: leukocytosis, cough TECHNIQUE: 2 views of the chest were acquired. COMPARISON: [facility], , CHEST 1VW (PORTABLE), 09/01/2013, 14:37. FINDINGS: Surgical changes and devices: A stent is projected over the right aspect of the L2-3 region. Lungs and pleura: No pleural effusions or pneumothorax. Lungs are clear. Mediastinum: Mediastinal contours are normal. Heart size is normal. Bones and chest wall: No suspicious bony abnormalities. Soft tissues appear unremarkable. IMPRESSION: No acute cardiopulmonary findings. Dictated by: Mikayla Ricci M.D. on 01/19/2017 at 16:26 Approved by: Mikayla Ricci M.D. on 01/19/2017 at 16:27
--- NOTE | 2017-01-19 16:36 | ED.REPORT ---
HPI-General Illness Date of Service Jan 19, 2017 ED Provider: Antoni Middleton PA-C Mary Carmen is a 71-year-old female returns to emergency department at the request of her credit rating checker at [place]. Her chief complaint is a 3 day history of weakness, fatigue, anorexia, low-grade fever. Patient underwent a pancreatic duct stent placement on January 07 at [facility] for repeated acute pancreatitis. She had a complication of postsurgical pancreatitis, but her recovery was progressing well until 3 days ago when she began to feel weak, fatigued, feverish. Low-grade fever was noted at home at roughly 100.3. Patient was seen in this department 2 days ago and evaluated. Discharged home after evaluation of labs, x-ray to confirm stent placement and consultation with surgical group at [facility]. Patient returns today with continuing, slightly worsened symptoms. 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 Denies abdominal pain, diarrhea, melena, hematochezia, vomiting, urinary symptoms. Admits mild cough. Nursing Notes Stated Complaint: FOLLOW-UP TO 01/17/17 ER VISIT Chief Complaint: General Complaint Nursing Notes Reviewed: Yes Allergies: Coded Allergies: TAPE (Verified Allergy, Unknown, 04/22/16) Scheduled Anastrozole (Anastrozole) 1 Mg Tablet 1 MG PO DAILY Biotin (Biotin) 10 Mg Tablet 10 MG PO every other day Cholecalciferol (Vitamin D3) (Vitamin D3) 2,000 Unit Capsule 2,000 UNIT PO BID Levetiracetam (Levetiracetam) 500 Mg Tablet 500 MG PO BID Scheduled PRN Zolpidem (Zolpidem) 5 Mg Tablet 2.5 MG PO HS PRN PRN For Insomnia General Time Seen by MD: 15:10 Chief Complaint Weakness Past Medical History Past Medical History left-sided breast cancer Past Surgical History left mastectomy hip replacement Family History Noncontributory Smoking History Former Smoker Social History Alcohol Use: Denies alcohol use Drug Use: Denies drug use Other Social History: Good social support, , Local resident Ambulatory Status Independent Review of Systems Negative unless stated otherwise in history of present illness Physical Exam General: Tired appearing, well developed, well nourished, no acute distress. Head: Atraumatic, normocephalic. Eyes: No scleral icterus or injection. No discharge. Vision grossly intact. ENT: Voice clear, hearing grossly intact. Respiratory: Mild, clinically of a cough. Regular rate and rhythm. Breath sounds present, clear to auscultation and equal bilaterally. No respiratory distress. No increased work of breathing, speaks in complete sentences. Cardiovascular: Regular rate and rhythm, without murmur, gallop or rub. No pedal edema. Gastrointestinal: Abdomen flat and non-tender without guarding or rebound. Bowel sounds normoactive. Skin: Warm and dry. Neurological: Grossly nonfocal. Psychological: Alert and oriented. Speech appropriate, linear and logical. Behavior appropriate. Vital Signs Vital Signs Date Time Temp Pulse Resp B/P Pulse Ox O2 Delivery O2 Flow Rate FiO2 01/19/17 21:41 36.9 78 16 112/62 98 Room Air 01/19/17 18:32 80 16 109/58 98 Room Air 01/19/17 16:01 74 16 110/61 100 Room Air 01/19/17 12:51 37.3 76 17 107/68 100 Room Air Normal Interpretation & Diagnostics Lab Results Interpretation Result Diagram: 01/19/17 1556 01/19/17 1556 Test 01/19/17 14:35 01/19/17 15:56 Lipase 30U/L (13-60) White Blood Count 17.9th/mm3 (3.8-10.1) Red Blood Count 3.89mil/mm3 (3.90-5.20) Hemoglobin 11.9g/dL (12.0-15.6) Hematocrit 36.0% (35.0-46.0) Mean Corpuscular Volume 92.5fL (81-100) Mean Corpuscular Hemoglobin 30.6pg (27.0-35.0) Mean Corpuscular Hemoglobin Concent 33.1% (32.0-37.0) Red Cell Distribution Width 12.7% (12.3-15.4) Platelet Count 303bil/L (150-400) Neutrophils (%) (Auto) 84.5% (40-74) Lymphocytes (%) (Auto) 6.1% (14-46) Monocytes (%) (Auto) 9.0% (4-12) Eosinophils (%) (Auto) 0.1% (0-5) Basophils (%) (Auto) 0.1% (0-3) Urine Color Yellow (YELLOW) Urine Appearance Clear (CLEAR,HAZY) Urine pH 7.0 (5.0-8.0) Urine Specific [place] 1.010 (1.003-1.035) Urine Protein Tracemg/dL (NEG,TRACE) Urine Glucose (UA) Negativemg/dL (NEGATIVE) Urine Ketones 15mg/dL (NEGATIVE) Urine Occult Blood Negative (NEGATIVE) Urine Nitrite Negative (NEGATIVE) Urine Bilirubin Negative (NEGATIVE) Urine Urobilinogen Normalmg/dL (NORMAL) Urine Leukocyte Esterase Trace (NEGATIVE) Urine RBC 0-2/hpf (0-2) Urine WBC 0-5/hpf (0-5) Urine Epithelial Cells Occasional/hpf (NONE-MOD) Urine Crystals None seen (NONE SEEN) Urine Bacteria Few/hpf (NONE-FEW) Urine Hyaline Casts None/lpf (NONE) Urine Granular Casts None seen (NONE SEEN) Urine Waxy Casts None seen (NONE SEEN) Urine Red Blood Cell Casts None seen (NONE SEEN) Urine White Blood Cell Casts None seen (NONE SEEN) Urine Mucus Present (None Seen) Urine Trichomonas None seen (NONE SEEN) Urine Yeast None (NONE SEEN) Urinalysis Comment None Urine Culture Reflexed Indicated Sodium Level 133mEq/L (134-144) Potassium Level 4.2mEq/L (3.5-5.2) Chloride Level 95mEq/L (97-108) Carbon Dioxide Level 22mmol/L (18-29) Blood Urea Nitrogen 10mg/dL (8-27) Creatinine 0.65mg/dL (0.57-1.00) Estimat Glomerular Filtration Rate 129mL/min (>59) Glucose Level 101mg/dL (60-99) Lactic Acid Level 1.0mmol/L (0.4-2.0) Calcium Level 9.3mg/dL (8.5-10.1) Total Bilirubin 0.5mg/dL (0.0-1.2) Aspartate Amino Transf (AST/SGOT) 18U/L (0-50) Alanine Aminotransferase (ALT/SGPT) 18U/L (0-32) Alkaline Phosphatase 61U/L (25-165) Total Protein 6.5g/dL (6.4-8.4) Albumin 3.3g/dL (3.4-5.0) X-Ray Chest Interpretation Chest Xray Interpretation: PROCEDURE: X-RAY CHEST, TWO VIEWS ([id number]) INDICATIONS: leukocytosis, cough IMPRESSION: No acute cardiopulmonary findings. Interpretation / Wet Read by: Interpret - Radiologist CT Abd / Pelvis Interpretation PROCEDURE: CT ABDOMEN AND PELVIS WITH CONTRAST ([id number]) INDICATIONS: leukocytosis, status post pancreatic duct stent IMPRESSION: 1. Multiloculated, cystic appearance of the pancreatic head and uncinate process suggesting severe ductal dilatation. Differential considerations include complex pancreatic pseudocyst. These findings are new when compared with the most recent imaging of the pancreas (MRCP) available to time of this dictation dated 10/03/16. 2. Peripancreatic fat stranding suggesting acute pancreatitis. These findings were discussed with Dr. Middleton at 4:34 PM on 01/19/17. Interpretation / Wet Read by: Interpret - Radiologist Re-Eval/Medical Decision Consultation #1: Referral / Consult Name: Delphine Delgado MD Call Returned at: 17:08 Note: Dr. Kennedy, the patient's credit rating checker at [facility], reviewed CT results with me. She suggests the patient should be admitted for IV hydration, antibiotics. Suggest reassessment of pancreatitis in [address] scan. She believes this is likely manageable here, but the patient can be transferred to [facility] if necessary. Consultation #2: Referral / Consult Name: Gonzalez Arreola MD Call Returned at: 17:43 Note: Dr. Arreola of does not feel that this presentation requires admission. Suggests contacting [facility] for other outpatient follow-up or admission. Discharge & Departure Primary Impression: Acute pancreatitis Additional Impression: Leukocytosis Referrals: Alie Rios MD (PCP) EDSupervising Provider for APC: Flakito Henry MD Attending Statement I assumed care of patient from PATIENCE Middleton. I evaluated patient independently and agree with Dr. sawyer as above. In brief, 71-year-old female with history of pancreatic divisum who is 2 weeks status post pancreatic duct placement presenting with abdominal pain nausea vomiting times several days. Her white blood cell count is 17,000. She has moderate abdominal tenderness. Her CT shows that the stent is in place. I discussed with her GI doctor Dr. Ba who agrees with transfer to [facility]. I gave her Zosyn and 2 L normal saline. She was transferred for pancreatitis and mobile postop infection. Accepting hospitalist, Dr Sanchez. He answered in stable condition. Antoni Middleton PA-C Jan 19, 2017 16:36 Flakito Henry MD Jan 19, 2017 23:42
[2017-01-19 16:37] LABS: APPEARANCE,URINE CLEAR (CLEAR,HAZY); COLOR,URINE YELLOW (YELLOW); OCCULT BLOOD,URINE NEGATIVE (NEGATIVE); UROBILINOGEN,URINE NORMAL (NORMAL)
--- NOTE | 2017-01-19 16:38 | DRSVH ---
PROCEDURE: CT ABDOMEN AND PELVIS WITH CONTRAST ([id number]) INDICATIONS: leukocytosis, status post pancreatic duct stent TECHNIQUE: After the administration of oral and intravenous contrast, 5 mm thick sections acquired from the diap hragms to the symphysis. 5 mm thick coronal and sagittal reformats were performed. For radiation do se reduction, the following was used: automated exposure control, adjustment of mA and/or kV accordi ng to patient size. COMPARISON: [facility], MR, MR ABD W&WO CON, 10/03/2016, 7:58. [facility], C T, CT ABD PELVIS W CON, 08/21/2016, 2:43. FINDINGS: Image quality: Excellent. ABDOMEN: Lung bases: Lung bases are clear. Heart size is normal. Solid organs: Liver and spleen are normal in size and enhancement. Gallbladder is unremarkable. Bi liary system is non-dilated. No adrenal nodules. Kidneys are normal in size and enhancement, withou t hydronephrosis. The head and uncinate process of the pancreas have a centrally cystic, multiloculated appearance sugg esting marked dilatation of the main and accessory pancreatic ducts. There is mild peripancreatic fat stranding and multiple shotty peripancreatic lymph nodes, all of which are less than a centimeter in short axis diameter. No discrete peripancreatic fluid collections. A central pancreatic stent is vis ualized likely at the ampulla. Peritoneum and bowel: Stomach, small bowel, and colon loops are normal in caliber and wall thickness . The appendix is thin walled and gas filled. No free fluid or air. Nodes and vessels: No retroperitoneal or mesenteric adenopathy. Aorta and inferior vena cava are no rmal in caliber. Miscellaneous: No ventral hernias. PELVIS: Genitourinary: Bladder wall thickness is normal. Calcifications are visualized within the uterus gallagher ggesting partially calcified fibroids. There is a low density 1.5 cm left ovarian cystic lesion. Miscellaneous: No inguinal hernias or adenopathy. Bones: No suspicious bony lesions. No vertebral body compression fractures. Right hip arthroplasty is unremarkable. IMPRESSION: 1. Multiloculated, cystic appearance of the pancreatic head and uncinate process suggesting severe du ctal dilatation. Differential considerations include complex pancreatic pseudocyst. These findings ar e new when compared with the most recent imaging of the pancreas (MRCP) available to time of this dic tation dated 10/03/16. 2. Peripancreatic fat stranding suggesting acute pancreatitis. These findings were discussed with Dr. Middleton at 4:34 PM on 01/19/17. Dictated by: Mikayla Ricci M.D. on 01/19/2017 at 16:28 Approved by: Mikayla Ricci M.D. on 01/19/2017 at 16:36
[2017-01-19 18:32] VITALS: BP 109/58; PULSE 80; RESP 16; O2SAT 98
[2017-01-19] MEDS ORDERED: Piperacillin-Tazo 3.375 Gm Inj 3.375 GM in Dextrose 5% Minibag Plus 50 ML IV ONE (19:00)
[2017-01-19 21:41] VITALS: BP 112/62; PULSE 78; RESP 16; O2SAT 98
== END 2017-01-19 21:38 | disposition short-term general hospital (02) ==
LOC: SED 12:46
DX: K85.90 Acute pancreatitis without necrosis or infection, unspecified (principal); D72.819 Decreased white blood cell count, unspecified; Z85.3 Personal history of malignant neoplasm of breast; Z87.891 Personal history of nicotine dependence; Z79.899 Other long term (current) drug therapy
CPT/HCPCS: 36415; 71020; 74177; 80053; 81000; 83605; 83690; 85025; 87040; 87086; 87088; 96361; 96365; 96375; 99285; J1953; J2543; J7030; Q9967